=== PATIENT | female | born 1970 | race American Indian/Alaskan Native ===

== ENCOUNTER 2017-02-18 17:56 | Emergency (ER) | payer MEDICAID, MEDICARE ==
[~2017-02-18] VITALS: Ht 157.5 cm; Wt 85.0 kg
[2017-02-18] MEDS ORDERED: SODIUM CHLORIDE 0.9% 1,000 ML IV ONE (19:04)
[2017-02-18 19:13] LABS: HEMOGLOBIN 14.8 g/dL (11.7-16.4)
[2017-02-18 19:15] LABS: BLOOD UREA NITROGEN 9 mg/dL (7-18)
[2017-02-18] MEDS ORDERED: ONDANSETRON 2MG/ML, 2ML ONE (19:30)
[2017-02-18] MEDS ORDERED: HYDROmorphone 1 MG/ML, 1ML ONE (19:30)
[2017-02-18] MEDS ORDERED: SODIUM CHLORIDE FLUSH 10ML SYR IVF ONE (19:30)
[2017-02-18] MEDS ORDERED: SODIUM CHLORIDE 0.9% 1,000ML IVBOLUS ONE (19:30)
[2017-02-18] MEDS ORDERED: ONDANSETRON 2MG/ML, 2ML IVPush ONE (19:30)
[2017-02-18] MEDS ORDERED: HYDROmorphone 1 MG/ML, 1ML IVPush PRN (19:30)
[2017-02-18 20:36] LABS: PATH.CAST-FLAG NOT PRESENT; SPERM-FLAG NOT PRESENT; SRC-FLAG NOT PRESENT; XTAL-FLAG NOT PRESENT; YLC-FLAG NOT PRESENT
[2017-02-18] MEDS ORDERED: KETOROLAC 30 MG/1 ML ONE (20:46)
[2017-02-18] MEDS ORDERED: KETOROLAC 30 MG/1 ML IVPush ONE (21:00)
[2017-02-18 21:12] VITALS: BP 108/62
== END 2017-02-18 21:14 | disposition home or self-care (01) ==
LOC: ED 21:09
DX: N20.2 Calculus of kidney with calculus of ureter (principal); Z87.442 Personal history of urinary calculi; J45.909 Unspecified asthma, uncomplicated; M54.9 Dorsalgia, unspecified; G89.29 Other chronic pain; E03.9 Hypothyroidism, unspecified
CPT/HCPCS: 36415; 71010; 74000; 76770; 80048; 80076; 81001; 82040; 83690; 85025; 87086; 96361; 96374; 96375; 99285; J1170; J1885; J2405; J7030

== ENCOUNTER 2017-06-15 08:47 | Emergency (ER) | payer MEDICARE, MEDICAID ==
[~2017-06-15] VITALS: Ht 157.5 cm; Wt 90.8 kg
[2017-06-15] MEDS ORDERED: SODIUM CHLORIDE 0.9% 1,000 ML IV ONE (09:31)
[2017-06-15] MEDS ORDERED: MORPHINE SULFATE 4 MG/ML, 1ML ONE ×2 (09:55→11:21)
[2017-06-15] MEDS ORDERED: ONDANSETRON 2MG/ML, 2ML ONE (09:55)
[2017-06-15] MEDS ORDERED: KETOROLAC 30 MG/1 ML ONE (09:55)
[2017-06-15 10:00] LABS: ASPARTATE AMINO TRANSFERASE 24 U/L (15-37); BLOOD UREA NITROGEN 17 mg/dL (7-18)
[2017-06-15] MEDS ORDERED: KETOROLAC 30 MG/1 ML IVPush ONE (10:00)
[2017-06-15] MEDS ORDERED: PHENAZOPYRIDINE 100 MG TABLET PO ONE (10:00)
[2017-06-15] MEDS ORDERED: ONDANSETRON 2MG/ML, 2ML IVPush ONE (10:00)
[2017-06-15] MEDS ORDERED: TAMSULOSIN 0.4 MG CAP.ER.24H PO ONE (10:00)
[2017-06-15] MEDS: MORPHINE SULFATE 4 MG/ML, 1ML IVPush PRN ×2 (10:12→11:26)
[2017-06-15] MEDS ORDERED: TAMSULOSIN 0.4 MG CAP.ER.24H ONE (11:30)
[2017-06-15 11:35] VITALS: BP 105/44
[2017-06-15] MEDS ORDERED: ASPI-515 PO (21:06)
[2017-06-15] MEDS ORDERED: ALBU8.5H3 INH (21:06)
[2017-06-15] MEDS ORDERED: LEVO112T4 PO (21:06)
[2017-06-15] MEDS ORDERED: MOME13HF INH (21:06)
== END 2017-06-15 12:54 | disposition home or self-care (01) ==
LOC: ED 09:21
DX: N13.2 Hydronephrosis with renal and ureteral calculous obstruction (principal); R31.9 Hematuria, unspecified; E03.9 Hypothyroidism, unspecified; J45.909 Unspecified asthma, uncomplicated; Z90.49 Acquired absence of other specified parts of digestive tract; Z90.710 Acquired absence of both cervix and uterus
CPT/HCPCS: 36415; 74000; 74176; 80053; 81001; 83690; 85025; 85610; 87086; 96361; 96374; 96375; 96376; 99285; J1885; J2405; J7030

== ENCOUNTER 2017-06-15 20:22 | Emergency (ER) | payer MEDICARE, MEDICAID ==
[~2017-06-15] VITALS: Ht 157.5 cm; Wt 89.5 kg
[2017-06-15] MEDS ORDERED: ONDANSETRON 2MG/ML, 2ML ONE (20:55)
[2017-06-15] MEDS ORDERED: ASPIRIN 81 MG TABLET CHEW ONE (20:55)
[2017-06-15] MEDS ORDERED: SODIUM CHLORIDE 0.9% 1,000ML IVBOLUS ONE (21:00)
[2017-06-15] MEDS ORDERED: ONDANSETRON 2MG/ML, 2ML IVPush ONE (21:00)
[2017-06-15] MEDS ORDERED: ASPIRIN 81 MG TABLET CHEW PO ONE (21:00)
[2017-06-15] MEDS ORDERED: SODIUM CHLORIDE FLUSH 10ML SYR IVF ONE (21:00)
[2017-06-15] MEDS ORDERED: MOME13HF INH (21:06)
[2017-06-15] MEDS ORDERED: LEVO112T4 PO (21:06)
[2017-06-15] MEDS ORDERED: ALBU8.5H3 INH (21:06)
[2017-06-15] MEDS ORDERED: ASPI-515 PO (21:06)
[2017-06-15 21:12] LABS: BLOOD UREA NITROGEN 15 mg/dL (7-18)
[2017-06-15 21:17] LABS: IS PT STATUS REG ER OR PRE ER? YES
[2017-06-15 22:19] VITALS: BP 128/75
== END 2017-06-15 22:20 | disposition home or self-care (01) ==
LOC: ED 21:27
DX: R07.89 Other chest pain (principal); R11.2 Nausea with vomiting, unspecified; J45.909 Unspecified asthma, uncomplicated; E03.9 Hypothyroidism, unspecified; G89.29 Other chronic pain; M54.9 Dorsalgia, unspecified; Z87.891 Personal history of nicotine dependence; Z90.49 Acquired absence of other specified parts of digestive tract; Z90.710 Acquired absence of both cervix and uterus
CPT/HCPCS: 36415; 71010; 80048; 82040; 84484; 85025; 85379; 93005; 96361; 96374; 99285; J2405; J7030

== ENCOUNTER 2017-12-18 20:44 | Observation (INO) | payer MEDICARE, MEDICAID ==
[~2017-12-18] VITALS: Ht 157.5 cm; Wt 87.7 kg
[~2017-12-18 20:44] MED LIST: ALBU8.5H8 INH; ASPI-515 PO; LEVO112T4 PO; MOME13HF INH
[2017-12-18] MEDS ORDERED: ASPIRIN 81 MG TABLET CHEW PO ONE (21:30)
[2017-12-18 21:42] LABS: BASOPHILS # (AUTO) 0.04 x10^3/uL (0-0.1); BASOPHILS % (AUTO) 1 % (0-1); EOSINOPHILS # (AUTO) 0.18 x10^3/uL (0-0.4); EOSINOPHILS % (AUTO) 2 % (1-7); LYMPHOCYTES # (AUTO) 1.92 x10^3/uL (1-3.4); LYMPHOCYTES % (AUTO) 26 % (22-44); MD NO; MEAN CORPUSCULAR HEMOGLOBIN 28.5 pg (27.0-34.8); MEAN CORPUSCULAR HGB CONC 33.1 g/dL (32.4-35.8); MEAN CORPUSCULAR VOLUME 85.9 fL (80-100); MEAN PLATELET VOLUME 8.5 fL (7.4-10.4); MONOCYTES # (AUTO) 0.35 x10^3/uL (0.2-0.8); MONOCYTES % (AUTO) 5 % (2-9); NEUTROPHILS % (AUTO) 67 % (42-75); PLATELET COUNT 269 x10^3/uL (130-400); RED BLOOD COUNT 5.26 x10^6/uL (3.82-5.3); RED CELL DISTRIBUTION WIDTH 13.2 % (9.6-15.2)
[2017-12-18 21:54] LABS: ALANINE AMINOTRANSFERASE 26 U/L (12-78); ALBUMIN 3.9 g/dL (3.4-5.0); ANION GAP 8 mmol/L (5-15); CHLORIDE 106 mmol/L (98-107); CREATININE 0.62 mg/dL (0.55-1.02)
[2017-12-18 21:58] LABS: ALKALINE PHOSPHATASE 111 U/L (45-117); BILIRUBIN,TOTAL 0.6 mg/dL (0.2-1.0); TOTAL PROTEIN 8.4 g/dL (6.4-8.2); TROPONIN I < 0.015 ng/mL (0.000-0.045)
[2017-12-18] MEDS ORDERED: ASPIRIN 81 MG TABLET CHEW ONE (23:09)
[2017-12-18] MEDS ORDERED: FLUT1BLS INH (23:18)
[2017-12-19 00:09] VITALS: BP 109/71
[2017-12-19] MEDS ORDERED: BISACODYL 10 MG SUPP PR PRN (01:00)
[2017-12-19] MEDS ORDERED: ONDANSETRON 2MG/ML, 2ML IVPush PRN (01:00)
[2017-12-19] MEDS ORDERED: morphine SULFATE 10 MG/ML, 1ML IVPush PRN (01:00)
[2017-12-19] MEDS ORDERED: hydrALAzine 20 MG/ML, 1ML IVPush PRN (01:00)
[2017-12-19] MEDS ORDERED: OXYcodone IR 5MG TABLET PO PRN (01:00)
[2017-12-19] MEDS ORDERED: DOCUSATE 100 MG CAPSULE PO PRN (01:00)
[2017-12-19] MEDS ORDERED: POLYETHYLENE GLYCOL 17 GM PACKET PO PRN (01:00)
[2017-12-19] MEDS ORDERED: ENALAPRILAT 1.25 MG/ML, 2ML IVPush PRN (01:00)
[2017-12-19] MEDS ORDERED: ACETAMINOPHEN 325 MG TABLET PO PRN (01:00)
[2017-12-19] MEDS: SODIUM CHLORIDE 0.9% 1,000 ML IV SCH ×2 (01:03→10:33)
[2017-12-19] MEDS: HEPARIN 5,000 UNITS/ML, 1ML SQ SCH ×2 (01:04→08:24)
[2017-12-19 03:30] LABS: TROPONIN I < 0.015 ng/mL (0.000-0.045)
[2017-12-19 03:33] LABS: HEMOGLOBIN A1C 5.8 % (4.2-6.3)
[2017-12-19 03:46] LABS: FREE T4 (FREE THYROXINE) 1.42 ng/dL (0.76-1.46); THYROID STIMULATING HORMONE 0.444 mIU/L (0.358-3.740)
[2017-12-19 03:54] VITALS: BP 106/58
[2017-12-19] MEDS: TEMPLATE NON-FORMULARY MED. (Albuterol Sulfate (Proair Hfa) 2 PUFF(S)) INH SCH ×2 (06:00→11:00)
[2017-12-19] MEDS ORDERED: REGADENOSON 0.4 MG/5 ML SYRINGE ONE (08:23)
[2017-12-19 08:28] VITALS: BP 101/69
[2017-12-19] MEDS ORDERED: FLUTICASONE/VILANTEROL 200-25MCG/INH INH SCH (09:00)
[2017-12-19] MEDS ORDERED: ASPIRIN 81 MG TABLET EC PO SCH (09:00)
[2017-12-19] MEDS ORDERED: LEVOTHYROXINE 112 MCG TABLET PO SCH (09:00)
[2017-12-19 09:01] LABS: MICROSCOPIC NOT IND
[2017-12-19 09:02] LABS: CULTURE INDICATED? NO
[2017-12-19 09:12] LABS: TROPONIN I < 0.015 ng/mL (0.000-0.045)
[2017-12-19 13:17] VITALS: BP 119/60
[2017-12-19] MEDS ORDERED: FLU VACC QS2017-18 (36MOS+) UP/PF 0.5 ML IM-VACC ONE (13:30)
== END 2017-12-19 14:20 | disposition home or self-care (01) ==
LOC: ED 23:19 → EDIP 23:25 → INTOOBSV 23:25 → 5SO 12-19 00:05 → DCLOUNGE 12-19 14:17
PROVIDERS: ADMIT Internal Medicine; ATTEND Internal Medicine
DX: R07.89 Other chest pain (principal); E03.9 Hypothyroidism, unspecified; E66.9 Obesity, unspecified; J45.909 Unspecified asthma, uncomplicated; Z87.442 Personal history of urinary calculi; Z90.710 Acquired absence of both cervix and uterus
CPT/HCPCS: 36415; 71045; 78452; 80053; 81003; 83036; 83735; 83880; 84439; 84443; 84484; 84703; 85025; 90471; 90686; 93005; 93017; 96360; 96361; 96372; 99285; A9502; C9898; G0378; J1644; J2785; J7030